=== PATIENT | male | born 1985 | race Caucasian/White ===

== ENCOUNTER 2020-01-04 09:23 | Emergency (ER) | payer OTHER ==
[~2020-01-04] VITALS: Ht 172.7 cm; Wt 82.0 kg
[~2020-01-04 09:23] MED LIST: ALBU2.5V12 NEB; ALBU8.5H8 INH; BUDE10.2 INH; CHOL100025 PO; PRED10TA23 PO
[2020-01-04 09:31] VITALS: BP 118/79
== END 2020-01-04 10:48 | disposition home or self-care (01) ==
LOC: ER 09:24
DX: S05.12XA Contusion of eyeball and orbital tissues, left eye, initial encounter (principal); S05.11XA Contusion of eyeball and orbital tissues, right eye, initial encounter; R55 Syncope and collapse; M25.562 Pain in left knee; J45.909 Unspecified asthma, uncomplicated; Z60.2 Problems related to living alone; Z88.8 Allergy status to other drugs, medicaments and biological substances; Z79.899 Other long term (current) drug therapy; W18.39XA Other fall on same level, initial encounter; Y93.89 Activity, other specified; Y92.89 Other specified places as the place of occurrence of the external cause; Y99.8 Other external cause status
CPT/HCPCS: 70450; 70486; 99285

== ENCOUNTER → 2020-10-28 | Emergency (ER) | payer OTHER ==
[~2020-10-28] VITALS: Ht 172.7 cm; Wt 81.8 kg
[~2020-10-28] MED LIST changes: -PRED10TA23 PO; +PRED20TA PO; +dexamethasone sod phosphate 10mg/ml inj IV STA; +magnesium 2GM in 50ml NS 50 ML IV ONE
[2020-10-28] MEDS: ipratropium/albuterol 3ml nebule NEB ONE (12:21)
[2020-10-28] MEDS: DEXAMETHASONE 6 MG TABLET PO ONE (13:16)
[2020-10-28] MEDS: terbutaline 1 mg/ml inj SQ STA (13:18)
[2020-10-28 13:26] VITALS: BP 143/81
== END | disposition home or self-care (01) ==
LOC: ER 12:05
DX: J45.901 Unspecified asthma with (acute) exacerbation (principal); Z72.89 Other problems related to lifestyle; Z60.2 Problems related to living alone; Z88.8 Allergy status to other drugs, medicaments and biological substances; Z79.899 Other long term (current) drug therapy
CPT/HCPCS: 94640; 96372; 99283; J3105; 94760; J8540